=== PATIENT | female | born 1975 | race Hispanic/Latino ===

== ENCOUNTER → 2017-12-22 | Outpatient (CLI) | payer MEDICARE, OTHER ==
[~2017-12-22] MED LIST: BISA5TAB12 PO; CELE200C PO; CLON0.5T PO; CYCL30DR OU; DEXL60CA3 PO; LACT10SO PO; LAMO25TA8 PO; LINA290C PO; LORA10TA7 PO; LURA80TA PO; METO5TAB2 PO; MONT10TA24 PO; SERT100T12 PO; TAMS0.4C32 PO; VITAMIN D PO; [UNRECOGNIZED DRUG - OTHER] TP
== END | disposition home or self-care (01) ==
LOC: RAH 13:51
PROVIDERS: ATTEND Obstetrics & Gynecology
DX: R10.2 Pelvic and perineal pain (principal)
CPT/HCPCS: 76856

== ENCOUNTER 2020-01-12 08:59 | Emergency (ER) | payer OTHER, MEDICARE ==
[~2020-01-12 08:59] MED LIST changes: -LAMO25TA8 PO; +LAMO25TA9 PO; -MONT10TA24 PO; +MONT10TA26 PO
[2020-01-12] MEDS ORDERED: DIAZEPAM 2 MG TAB ONE (10:12)
[2020-01-12] MEDS ORDERED: ACETAMINOPHEN 325 MG TAB ONE (10:12)
== END 2020-01-12 13:23 | disposition home or self-care (01) ==
LOC: EDH 08:59
DX: S16.1XXA Strain of muscle, fascia and tendon at neck level, initial encounter (principal); S29.092A Other injury of muscle and tendon of back wall of thorax, initial encounter; F41.9 Anxiety disorder, unspecified; G43.909 Migraine, unspecified, not intractable, without status migrainosus; K21.9 Gastro-esophageal reflux disease without esophagitis; F31.9 Bipolar disorder, unspecified; V49.59XA Passenger injured in collision with other motor vehicles in traffic accident, initial encounter; Y93.89 Activity, other specified; Y92.89 Other specified places as the place of occurrence of the external cause; Y99.8 Other external cause status
CPT/HCPCS: 70450; 72072; 72125

== ENCOUNTER → 2022-04-27 | Outpatient (CLI) | payer OTHER, MEDICARE ==
[~2022-04-27] MED LIST changes: +BISA-151 PO; -BISA5TAB12 PO; -LACT10SO PO; +LACT10SO5 PO; -LURA80TA PO; +LURA80TA2 PO; +MONT-39 PO; -MONT10TA26 PO; +SERT-440 PO; -SERT100T12 PO
== END | disposition home or self-care (01) ==
LOC: RAH 10:02
PROVIDERS: ATTEND Internal Medicine Gastroenterology
DX: R13.12 Dysphagia, oropharyngeal phase (principal); R63.30 Feeding difficulties, unspecified
CPT/HCPCS: 74230; 92611

== ENCOUNTER → 2022-09-27 | Outpatient (CLI) | payer OTHER, MEDICARE | END | disposition home or self-care (01) | LOC: SHCH 09:49 | PROVIDERS: ATTEND Internal Medicine Cardiovascular Disease | DX: R06.00 Dyspnea, unspecified (principal); I95.1 Orthostatic hypotension | CPT/HCPCS: 93306 ==

== ENCOUNTER 2023-08-26 12:01 | Emergency (ER) | payer OTHER, MEDICARE ==
[~2023-08-26 12:01] MED LIST changes: +CELE-384 PO; -CELE200C PO; -CLON0.5T PO; +CLON0.5T2 PO
[2023-08-26 13:20] LABS: APPEARANCE,URINE CLEAR (CLEAR); BILIRUBIN,URINE NEGATIVE (NEGATIVE); COLOR,URINE YELLOW (YELLOW); GLUCOSE, URINE (UA) NEGATIVE (NEGATIVE); KETONES,URINE NEGATIVE (NEGATIVE); LEUKOCYTE ESTERASE ,URINE NEGATIVE Leu/uL (NEGATIVE); NITRATE,URINE NEGATIVE (NEGATIVE); OCCULT BLOOD,URINE NEGATIVE (NEGATIVE); PROTEIN,URINE 10 mg/dL (NEGATIVE); UROBILINOGEN,URINE 0.2 mg/dL (0.2-1.0)
[2023-08-26 13:27] LABS: ADD UA MICROSCOPIC YES
[2023-08-26 13:28] LABS: MUCUS,URINE FEW LPF (None Seen); SQUAMOUS EPITHELIAL CELL,UR RARE /HPF (0-2)
[2023-08-26 16:00] LABS: BASOPHILS # (AUTO) 0.03 K/uL (0.00-0.20); BASOPHILS % (AUTO) 0.6 % (0.0-5.0); EOSINOPHILS # (AUTO) 0.14 K/uL (0.00-0.70); EOSINOPHILS % (AUTO) 2.6 % (0.0-8.0); HEMATOCRIT 42.4 % (36-48); IMMATURE GRANULOCYTE ABSOLUTE 0.01 K/uL (0-1); LYMPHOCYTES # (AUTO) 1.2 K/uL (1.0-4.8); LYMPHOCYTES % (AUTO) 21.8 % (21.0-51.0); MONOCYTES # (AUTO) 0.3 K/uL (0.1-1.0); MONOCYTES % (AUTO) 5.6 % (3.0-13.0); NEUTROPHILS # (AUTO) 3.7 K/uL (1.8-7.7); NEUTROPHILS % (AUTO) 69.2 % (40.0-77.0); PLATELET COUNT (AUTO) 143 K/uL (130-400); RED BLOOD CELL COUNT(AUTO) 4.66 MIL/uL (4.00-5.50); RED CELL DISTRIBUTION WIDTH 13.1 % (11.0-15.5); WHITE BLOOD COUNT (AUTO) 5.4 K/uL (4.8-10.8)
[2023-08-26 16:12] LABS: CREATININE 0.6 mg/dL (0.5-1.5)
[2023-08-26 16:16] LABS: ALBUMIN 4.2 g/dL (3.5-5.0); BILIRUBIN,TOTAL 0.8 mg/dL (0.2-1.0)
[2023-08-26] MEDS ORDERED: DIATR MEGLU/DIATRIZOATE SODIUM 30 ML BOTTLE ONE (16:20)
[2023-08-26] MEDS: 0.9%NACL 1000ML 1,000 ML IV ONE (17:51)
[2023-08-26] MEDS ORDERED: CEFD300C3 PO (19:27)
[2023-08-26] MEDS ORDERED: NAPR-1023 PO (19:27)
[2023-08-26] MEDS ORDERED: PHEN-847 PO (19:27)
[2023-08-26 19:33] VITALS: BP 101/72; PULSE 80; RESP 12; O2SAT 98
== END 2023-08-26 19:43 | disposition home or self-care (01) ==
LOC: EDH 12:01
DX: N39.0 Urinary tract infection, site not specified (principal); J45.909 Unspecified asthma, uncomplicated; F41.9 Anxiety disorder, unspecified; F32.A Depression, unspecified; G43.909 Migraine, unspecified, not intractable, without status migrainosus; Z79.899 Other long term (current) drug therapy; Z98.890 Other specified postprocedural states
CPT/HCPCS: 99284; 74176; 96360; 96361; 80053; 83690; 85025; 87040 ×2; 87797; 87486; 81001; 36415; Q9963; J7030

== ENCOUNTER → 2024-01-02 | Outpatient (CLI) | payer OTHER, MEDICARE ==
[~2024-01-02] MED LIST changes: +CEFD300C3 PO; -CELE-384 PO; +CELE200C3 PO; +NAPR-1023 PO; +PHEN-847 PO
== END | disposition home or self-care (01) ==
LOC: RAH 11:46
PROVIDERS: ATTEND Internal Medicine Gastroenterology
DX: K58.1 Irritable bowel syndrome with constipation (principal); M47.815 Spondylosis without myelopathy or radiculopathy, thoracolumbar region
CPT/HCPCS: 74018